=== PATIENT | male | born 1960 | race Two or more races ===

== ENCOUNTER 2019-06-18 10:52 | Outpatient (CLI) | payer BC ==
[2019-06-18] MEDS ORDERED: IOVERSOL 320 100 ML VIAL IVP ONE ×2 (11:16→11:52)
--- NOTE | 2019-06-19 21:22 | CT Report ---
Reason: PULMONARY NODULE Procedure Date: 06/18/2019 Accession Number: [id number] / [id number] Procedure: CT - CHEST W CPT Code: Final Report FULL RESULT: EXAM: CT CHEST EXAM DATE: 06/18/2019 11:27 AM. CLINICAL HISTORY: PULMONARY NODULE. COMPARISONS: None. TECHNIQUE: Routine helical CT imaging was performed through the chest. IV contrast: None. Reconstructions: Coronal and sagittal. In accordance with CT protocol optimization, one or more of the following dose reduction techniques were utilized for this exam: automated exposure control, adjustment of mA and/or KV based on patient size, or use of iterative reconstructive technique. FINDINGS: Lungs/Pleura: There is a very subtle subsegmental infiltrate in the posterior aspect of the right upper lobe on series 4 image 93. This is slightly groundglass and covers an area of approximately 12 mm. There is a small pulmonary nodule projecting in the right lower lobe within an accessory fissure. Series 4 image 157. This small nodule likely representing a fissural lymph node measures 6 mm x 4 mm. Mediastinum: Normal. No adenopathy or masses. The heart and great vessels are normal. Bones: Unremarkable. Visualized Abdomen: Unremarkable. Other: None. IMPRESSION: 1. Small nodule projecting over the right lower lobe likely within a small accessory fissure and representing a small fissural lymph node. 2. Very subtle area of atelectasis or groundglass changes in the posterior aspect of the right upper lobe. RADIA
== END 2019-06-18 10:53 | disposition home or self-care (01) ==
LOC: DI 10:52
PROVIDERS: ATTEND Family Medicine
DX: R91.1 Solitary pulmonary nodule (principal)
CPT/HCPCS: 71260; Q9967

== ENCOUNTER 2022-01-10 10:53 | Outpatient (CLI) | payer BC ==
--- NOTE | 2022-01-10 15:41 | CT Report ---
PROCEDURE: CHEST WO INDICATIONS: PULMONARY NODULE TECHNIQUE: Noncontrast 1mm axial images were acquired from the pulmonary apices to the posterior costophrenic an gles. Axial 5 mm soft tissue kernel reconstructions were performed as well as 8 mm axial MIP and cor onal and sagittal 5 mm reformations. For radiation dose reduction, the following was used: automate d exposure control, adjustment of mA and/or kV according to patient size. COMPARISON: CT chest 06/19/2019 FINDINGS: Image quality: Excellent. Lungs and pleura: No acute air space opacities. No pleural effusions or pneumothorax. Central and peripheral airways are patent and normal in caliber. Unchanged appearance of 4 mm juxta fissural nod ule on series 4 image 191. No new nodules are identified. Previous groundglass opacity within the rig ht upper lobe has resolved. Mediastinum: Heart size is normal. No pericardial effusion. No mediastinal adenopathy by size crit eria. Thoracic aorta and central pulmonary arteries are normal in size. Esophagus is normal in odette aniket. No hiatal hernia. Bones and chest wall: No suspicious bony lesions. No vertebral body compression fractures. No axil edwin or supraclavicular adenopathy by size criteria. The thyroid is normal in size and there are no incidental findings. Abdomen: Visualized upper abdominal solid organs and bowel loops appear normal in the absence of con trast. IMPRESSION: CLINICAL RECOMMENDATION STATEMENTS: In patients <35 years with an ITN detected on CT, MRI, or extrathyroidal ultrasound, the Committee re commends further evaluation with dedicated thyroid ultrasound if the nodule is "e1 cm and has no susp icious imaging features, and if the patient has normal life expectancy. In patients "e35 years with an ITN detected on CT, MRI, or extrathyroidal ultrasound, the Committee r ecommends further evaluation with dedicated thyroid ultrasound if the nodule is "e1.5 cm and has no s uspicious imaging features, and if the patient has normal life expectancy. (ACR, 2014) Reviewed by: Jennifer Vega MD on 01/10/2022 3:39 PM PDT Approved by: Jennifer Vega MD on 01/10/2022 3:39 PM PDT Station ID: [id number]
== END 2022-01-10 10:54 | disposition home or self-care (01) ==
LOC: DI 10:53
PROVIDERS: ATTEND Physician Assistant
DX: R91.1 Solitary pulmonary nodule (principal)